=== PATIENT | female | born 1985 | race Caucasian/White ===

== ENCOUNTER 2016-05-28 12:46 | Emergency (ER) | payer BC ==
[~2016-05-28] VITALS: Ht 162.6 cm; Wt 114.3 kg
[~2016-05-28 12:46] MED LIST: ACHYD1T PO; HYDR-757 PO; IBP800T PO; MTF500T PO; PREN1TAB39 PO; TRM50T PO
[2016-05-28] MEDS ORDERED: ONDANSETRON 4 MG/2 ML (SDV) Z0FRAN ONE (13:14)
[2016-05-28 13:30] LABS: BASOPHILS % (AUTO) 0 % (0-10); EOSINOPHILS # (AUTO) 0.6 10^3/uL (0.0-0.3); EOSINOPHILS % (AUTO) 7 % (0-10); LYMPHOCYTES # (AUTO) 2.9 X 10^3 (1.0-4.0); LYMPHOCYTES % (AUTO) 36 % (12-44); MEAN CORPUSCULAR HEMOGLOBIN 28 PG (25-34); MEAN CORPUSCULAR HGB CONC 33 G/DL (32-36); MEAN CORPUSCULAR VOLUME 85 FL (80-99); MEAN PLATELET VOLUME 9.1 FL (7.4-10.4); MONOCYTES # (AUTO) 0.5 X 10^3 (0.0-1.0); MONOCYTES % (AUTO) 6 % (0-12); NEUTROPHILS # (AUTO) 4.1 X 10^3 (1.8-7.8); NEUTROPHILS % (AUTO) 51 % (42-75); PLATELET COUNT 338 10^3/uL (130-400); RED BLOOD COUNT 4.41 10^6/uL (4.35-5.85); RED CELL DISTRIBUTION WIDTH 13.9 % (10.0-14.5)
[2016-05-28] MEDS ORDERED: ONDANSETRON 4 MG/2 ML (SDV) Z0FRAN IVP ONE (13:30)
[2016-05-28 13:47] LABS: BILIRUBIN,URINE NEGATIVE (NEGATIVE); KETONES,URINE NEGATIVE (NEGATIVE); LEUKOCYTE ESTERASE ,URINE NEGATIVE (NEGATIVE); NITRITE,URINE NEGATIVE (NEGATIVE); PH,URINE 7 (5-9); PROTEIN,URINE NEGATIVE (NEGATIVE); UROBILINOGEN,URINE NORMAL (NORMAL)
[2016-05-28 13:59] LABS: ALANINE AMINOTRANSFERASE 17 U/L (0-55); ALBUMIN 4.1 G/DL (3.2-4.5); ANION GAP 6 MMOL/L (5-14); ASPARTATE AMINO TRANSFERASE 15 U/L (5-34); BILIRUBIN,TOTAL 0.3 MG/DL (0.1-1.0); BLOOD UREA NITROGEN 8 MG/DL (7-18); BUN/CREATININE RATIO 10; CALCIUM 9.2 MG/DL (8.5-10.1); CARBON DIOXIDE 23 MMOL/L (21-32); CHLORIDE 109 MMOL/L (98-107); CREATININE SERUM 0.79 MG/DL (0.60-1.30); GFR ESTIMATED > 60; GLUCOSE 87 MG/DL (70-105); POTASSIUM 4.3 MMOL/L (3.6-5.0); SODIUM 138 MMOL/L (135-145); TOTAL PROTEIN 6.9 G/DL (6.4-8.2)
[2016-05-28] MEDS ORDERED: ONDA4TAB8 SL (14:42)
--- NOTE | 2016-05-28 14:42 | ED Abdominal Pain ---
General Chief Complaint: Abdominal/GI Problems Stated Complaint: RIGHT SIDE ABD PAIN Nursing Triage Note: PT CO OF ABD PAIN [place]INCE LA[place] [facility] [place] PAIN CONT TODAY Sepsis Screen: No Definite Risk Source of Information: Patient, Old Records (from [facility]) Exam Limitations: No Limitations History of Present Illness Time Seen By Provider: 13:05 Initial Comments This 31-year-old young lady presents to the emergency room with complaints of right lower quadrant pain and flank pain since about 19:00 last night. She denies any dysuria, hematuria, vomiting, or diarrhea. She is afebrile. She has had nausea without vomiting. She was seen at [place] emergency room last night. CT with contrast was performed. Appendix was not clearly visible but there were no secondary signs of appendicitis in the right lower quadrant. Labs were also relatively unremarkable. Records were obtained and reviewed. Patient denies as she has a Mirena IUD. Last bowel movement was yesterday and was normal. Allergies and Home Medications Allergies Coded Allergies: Codeine (Verified Allergy, Unknown, 05/29/10) Home Medications Ondansetron 4 Mg Tab.rapdis, 4 MG SL Q4H PRN for NAUSEA/VOMITING-1ST LINE, #10 Prescribed by: NAS MODI on 05/28/16 1442 Review of Systems Constitutional: no symptoms reported EENTM: No Symptoms Reported Respiratory: No Symptoms Reported Cardiovascular: No Symptoms Reported Gastrointestinal: See HPI Genitourinary: No Symptoms Reported Musculoskeletal: no symptoms reported Skin: no symptoms reported Psychiatric/Neurological: No Symptoms Reported Endocrine: No Symptoms Reported Past Ninxmho-Bsmirm-Reangm Hx Patient Social History Alcohol Use: Occasionally Uses Recreational Drug Use: No Smoking Status: Current Everyday Smoker Type Used: Cigarettes Recent Foreign Travel: No Contact w/Someone Who Travel: No Recent Infectious Disease Expo: No Recent Hopitalizations: No Surgeries HX Surgeries: Yes Surgeries: Breast (cyst removed from right breast), Section, Gallbladder, Orthopedic (toe pinning) Respiratory Hx Respiratory Disorders: No Cardiovascular Hx Cardiac Disorders: No Neurological Hx Neurological Disorders: No Reproductive System : No Hx Reproductive Disorders: No Female Reproductive Disorders: Endometriosis Genitourinary Hx Genitourinary Disorders: No Gastrointestinal Hx Gastrointestinal Disorders: No Musculoskeletal Hx Musculoskeletal Disorders: No Endocrine Hx Endocrine Disorders: No Endocrine Disorders: Diabetes, Non-Insulin dep HEENT HX ENT Disorders: No Cancer Hx Cancer: No Psychosocial Hx Psychiatric Problems: No Blood Transfusions Hx Blood Disorders: No Physical Exam Vital Signs VS - Last 72 Hours, by Label 05/28/16 05/28/16 13:40 14:56 Temp 97.1 97.1 Pulse 88 88 Resp 18 18 B/P (MAP) 122/85 Pulse Ox 97 97 Capillary Refill : Less Than 3 Seconds General Appearance: WD/WN, no apparent distress HEENT: PERRL/EOMI, normal ENT inspection Neck: normal inspection Respiratory: lungs clear, normal breath sounds, no respiratory distress, no accessory muscle use Cardiovascular: regular rate, rhythm, no edema, no murmur Gastrointestinal: normal bowel sounds, soft, tenderness (mild in the right lower quadrant and right flank) Extremities: normal inspection, no pedal edema Back: normal inspection, no CVA tenderness Neurologic/Psychiatric: wood borer II-XII nml as tested, no motor/sensory deficits, alert, normal mood/affect, oriented x 3 Skin: normal color, warm/dry Progress/Results/Core Measures Results/Orders Lab Results Laboratory Tests Test 05/28/16 13:20 05/28/16 13:30 Range/Units White Blood Count 8.0 4.3-11.0 10^3/uL Red Blood Count 4.41 4.35-5.85 10^6/uL Hemoglobin 12.2 11.5-16.0 G/DL Hematocrit 37 35-52 % Mean Corpuscular Volume 85 80-99 FL Mean Corpuscular Hemoglobin 28 25-34 PG Mean Corpuscular Hemoglobin Concent 33 32-36 G/DL Red Cell Distribution Width 13.9 10.0-14.5 % Platelet Count 338 130-400 10^3/uL Mean Platelet Volume 9.1 7.4-10.4 FL Neutrophils (%) (Auto) 51 42-75 % Lymphocytes (%) (Auto) 36 12-44 % Monocytes (%) (Auto) 6 0-12 % Eosinophils (%) (Auto) 7 0-10 % Basophils (%) (Auto) 0 0-10 % Neutrophils # (Auto) 4.1 1.8-7.8 X 10^3 Lymphocytes # (Auto) 2.9 1.0-4.0 X 10^3 Monocytes # (Auto) 0.5 0.0-1.0 X 10^3 Eosinophils # (Auto) 0.6 H 0.0-0.3 10^3/uL Basophils # (Auto) 0.0 0.0-0.1 10^3/uL Sodium Level 138 135-145 MMOL/L Potassium Level 4.3 3.6-5.0 MMOL/L Chloride Level 109 H 98-107 MMOL/L Carbon Dioxide Level 23 21-32 MMOL/L Anion Gap 6 5-14 MMOL/L Blood Urea Nitrogen 8 7-18 MG/DL Creatinine 0.79 0.60-1.30 MG/DL Estimat Glomerular Filtration Rate > 60 BUN/Creatinine Ratio 10 Glucose Level 87 70-105 MG/DL Calcium Level 9.2 8.5-10.1 MG/DL Total Bilirubin 0.3 0.1-1.0 MG/DL Aspartate Amino Transf (AST/SGOT) 15 5-34 U/L Alanine Aminotransferase (ALT/SGPT) 17 0-55 U/L Alkaline Phosphatase 72 40-136 U/L C-Reactive Protein High Sensitivity 0.40 0.00-0.50 MG/DL Total Protein 6.9 6.4-8.2 G/DL Albumin 4.1 3.2-4.5 G/DL Human Chorionic Gonadotropin, Quant < 5 <5 MIU/ML Urine Color YELLOW Urine Clarity CLEAR Urine pH 7 5-9 Urine Specific [place] 1.010 L 1.016-1.022 Urine Protein NEGATIVE NEGATIVE Urine Glucose (UA) NEGATIVE NEGATIVE Urine Ketones NEGATIVE NEGATIVE Urine Nitrite NEGATIVE NEGATIVE Urine Bilirubin NEGATIVE NEGATIVE Urine Urobilinogen NORMAL NORMAL MG/DL Urine Leukocyte Esterase NEGATIVE NEGATIVE Urine RBC (Auto) NEGATIVE NEGATIVE Urine RBC NONE /HPF Urine WBC NONE /HPF Urine Squamous Epithelial Cells 5-10 /HPF Urine Crystals NONE /LPF Urine Bacteria NEGATIVE /HPF Urine Casts NONE /LPF Urine Mucus NEGATIVE /LPF Urine Culture Indicated NO My Orders Orders - NAS STEWART MD Ua Culture If Indicated (05/28/16 13:09) Ondansetron Injection (Zofran Injectio (05/28/16 13:30) Cbc With Automated Diff (05/28/16 13:17) Comprehensive Metabolic Panel (05/28/16 13:17) Hs C Reactive Protein (05/28/16 13:17) Hcg,Quantitative (05/28/16 13:17) Saline Lock/Iv-Start (05/28/16 13:17) Ondansetron Injection (Zofran Injectio (05/28/16 13:14) Ketorolac Injection (Toradol Injection) (05/28/16 14:45) Medications Given in ED Vital Signs/I&O Vital Sign - Last 12Hours 05/28/16 05/28/16 13:40 14:56 Temp 97.1 97.1 Pulse 88 88 Resp 18 18 B/P (MAP) 122/85 Pulse Ox 97 97 Blood Pressure Mean: 97 Progress Note : Progress Note Patient's labs and vital signs did not suggest infectious problem. WBC count was decreasing from her prior. Patient was treated with Toradol and advised to have careful observation at home. Zofran was given for nausea. Return precautions discussed. At this point, risks of repeating the CT seem to outweigh the benefits. Patient commented after her workup was complete that she does have a history of endometriosis and has a follow-up appointment with Dr. Ken tomorrow. Departure Impression Impression: Primary Impression: Right lower quadrant abdominal pain Additional Impression: Nausea Disposition: 01 HOME, SELF-CARE Condition: Improved Departure-Patient Inst. Decision time for Depature: 14:30 Referrals: ALYSE BELTRE MD (PCP/Family) Primary Care Physician Patient Instructions: Acute Abdomen (Belly Pain), Adult (DC) Add. Discharge Instructions: Keep your follow-up appointment with Dr. Ken as your pain may be related to endometriosis. You may take ibuprofen up to 600 mg every 6 hours as needed for pain. Add Tylenol (acetaminophen) up to 1000 mg every 6 hours as needed for additional pain relief. Use the Zofran (ondansetron) as prescribed for nausea. Return to care if symptoms worsen. All discharge instructions reviewed with patient and/or family. Voiced understanding. Scripts Ondansetron (Zofran Odt) 4 Mg Tab.rapdis 4 MG SL Q4H Y for NAUSEA/VOMITING-1ST LINE, #10 TAB Prov: NAS STEWART MD 05/28/16 Copy Copies To 1: JHONATAN KEN MD Copies To 2: ALYSE BELTRE MD, JOSHUA T MD May 28, 2016 14:42
[2016-05-28] MEDS ORDERED: KETOROLAC 30 MG/ML VIAL IVP ONE (14:45)
[2016-05-28 14:56] VITALS: BP 122/85
== END 2016-05-28 14:55 | disposition home or self-care (01) ==
LOC: EDUNIT# 12:46 → ER 12:48
DX: R10.31 Right lower quadrant pain (principal); R11.2 Nausea with vomiting, unspecified; E11.9 Type 2 diabetes mellitus without complications; F17.210 Nicotine dependence, cigarettes, uncomplicated; Z97.5 Presence of (intrauterine) contraceptive device
CPT/HCPCS: 36415; 80053; 81000; 84702; 85025; 86141; 96374; 96375

== ENCOUNTER 2016-08-17 10:24 | Emergency (ER) | payer BC ==
[~2016-08-17] VITALS: Ht 162.6 cm; Wt 111.1 kg
[~2016-08-17 10:24] MED LIST changes: +ONDA4TAB8 SL
--- NOTE | 2016-08-17 10:43 | ED General ---
General Chief Complaint: General Problems/Pain Stated Complaint: FEVER/CHILLS/BACK PAIN/SORE THROAT Source of Information: Patient Exam Limitations: No Limitations History of Present Illness Time Seen by Provider: 10:42 Initial Comments To ER with a 3 to four-day history of chills, fever up to 100.5, sore throat, low back pain and general body aches. Timing/Duration: 2-3 Days Severity: Moderate Associated Systoms: No Cough, Fever/Chills Allergies and Home Medications Allergies Coded Allergies: Codeine (Verified Allergy, Unknown, 05/29/10) Home Medications Ondansetron 4 Mg Tab.rapdis, 4 MG SL Q4H PRN for NAUSEA/VOMITING-1ST LINE, #10 Prescribed by: NAS MODI on 05/28/16 1442 Constitutional: see HPI EENTM: see HPI Respiratory: no symptoms reported Cardiovascular: no symptoms reported Genitourinary: no symptoms reported Musculoskeletal: no symptoms reported Skin: no symptoms reported Psychiatric/Neurological: No Symptoms Reported Hematologic/Lymphatic: No Symptoms Reported Immunological/Allergic: no symptoms reported Past Nlzkzaz-Igspud-Sicfrd Hx Patient Social History Alcohol Use: Denies Use Recreational Drug Use: No Smoking Status: Current Everyday Smoker Type Used: Cigarettes 2nd Hand Smoke Exposure: Yes Recent Foreign Travel: No Contact w/Someone Who Travel: No Recent Hopitalizations: No Surgeries HX Surgeries: Yes Surgeries: Breast, Section, Gallbladder, Orthopedic Respiratory Hx Respiratory Disorders: No Cardiovascular Hx Cardiac Disorders: No Neurological Hx Neurological Disorders: No Reproductive System Hx Reproductive Disorders: No Female Reproductive Disorders: Endometriosis Genitourinary Hx Genitourinary Disorders: No Gastrointestinal Hx Gastrointestinal Disorders: No Musculoskeletal Hx Musculoskeletal Disorders: No Endocrine Hx Endocrine Disorders: No Endocrine Disorders: Diabetes, Non-Insulin dep HEENT HX ENT Disorders: No Cancer Hx Cancer: No Psychosocial Hx Psychiatric Problems: No Blood Transfusions Hx Blood Disorders: No Physical Exam Vital Signs Vital Sign - Last 12Hours 08/17/16 10:33 Temp 97.2 Pulse 84 Resp 16 B/P (MAP) 144/82 Pulse Ox 98 O2 Delivery Room Air Capillary Refill : Less Than 3 Seconds General Appearance: No Apparent Distress, WD/WN Eyes: Bilateral Eye EOMI, Bilateral Eye Normal Inspection, Bilateral Eye PERRL HEENT: PERRL/EOMI, TMs Normal, Tonsillar Exudate, Tonsillar Enlargement, Other (tonsillar erythema with exudate) Neck: Full Range of Motion, Normal Inspection Respiratory: Normal Breath Sounds, No Accessory Muscle Use, No Respiratory Distress Cardiovascular: Regular Rate, Rhythm, Normal Peripheral Pulses Gastrointestinal: Non Tender, Soft Extremity: Normal Capillary Refill, Normal Inspection Neurologic/Psychiatric: Alert, Oriented x3 Skin: Normal Color, Warm/Dry, No Rash Progress/Results/Core Measures Results/Orders Lab Results Laboratory Tests Test 08/17/16 10:35 Range/Units Group A Streptococcus Screen POSITIVE H NEGATIVE My Orders Orders - KELTON MERIDA APRN Rapid Strep A Screen (08/17/16 10:41) Dexamethasone Pf Injection (Decadron Pf (08/17/16 11:00) Amoxicillin Capsule (Polymox Capsule) (08/17/16 11:00) Vital Signs/I&O Vital Sign - Last 12Hours 08/17/16 10:33 Temp 97.2 Pulse 84 Resp 16 B/P (MAP) 144/82 Pulse Ox 98 O2 Delivery Room Air Departure Impression Impression: Primary Impression: Streptococcal pharyngitis Disposition: 01 HOME, SELF-CARE Condition: Stable Departure-Patient Inst. Decision time for Depature: 10:56 Referrals: ALYSE BELTRE MD (PCP/Family) Primary Care Physician Patient Instructions: Strep Throat (DC) Add. Discharge Instructions: 1. Antibiotics as directed 2. Return to ER for any concerns All discharge instructions reviewed with patient and/or family. Voiced understanding. Scripts Amoxicillin (Amoxicillin) 500 Mg Capsule 500 MG PO TID, #21 CAP Prov: KELTON MERIDA APRN 08/17/16 KELTON MERIDA APRN Aug 17, 2016 10:43
[2016-08-17] MEDS ORDERED: AMOXICILLIN 500 MG (POLYMOX) CAP PO ONE (10:57)
[2016-08-17] MEDS ORDERED: AMOX500C2 PO (10:58)
[2016-08-17] MEDS ORDERED: AMOXICILLIN 250 MG (POLYMOX) CAP PO SCH (11:00)
[2016-08-17] MEDS ORDERED: DEXAMETHASONE PF 10 MG/ML (DECADRON) VIAL IM ONE (11:00)
[2016-08-17 11:07] VITALS: BP 144/82
--- OUTSIDE RECORDS SUMMARY | 2016-08-21 06:50 | XMS REPORT | Continuity of Care Document ---
Author Author [facility] Organization [facility] Address Unknown Phone Unavailable Allergies Active Description Code Type Severity Reaction Onset Reported/Identified Relationship to Patient Clinical Status Yes codeine [id number] Drug Allergy Unknown N/A 01/25/2009 Medications Problems Date Dx Coded Attending Type Code Diagnosis Diagnosed By 12/08/2010 Ot 644.21 EARLY ONSET DELIVERY-DEL 12/08/2010 Ot 654.21 PREV DELIVRY W/ OR W/O MENT ANT 12/08/2010 Ot V27.0 DELIVER-SINGLE LIVEBORN 01/13/2013 KELTON MERIDA APRN Ot 620.2 OVARIAN CYST NEC/NOS 01/13/2013 KELTON MERIDA APRN Ot 789.03 ABDOMINAL PAIN, RIGHT LOWER QUADRANT 10/01/2013 NAS STEWART MD Ot 789.04 ABDOMINAL PAIN, LEFT LOWER QUADRANT 05/28/2016 NAS STEWART MD Ot E11.9 TYPE 2 DIABETES MELLITUS WITHOUT COMPLIC 05/28/2016 NAS STEWART MD Ot F17.210 NICOTINE DEPENDENCE, CIGARETTES, UNCOMPL 05/28/2016 NAS STEWART MD Ot R10.31 RIGHT LOWER QUADRANT PAIN 05/28/2016 NAS STEWART MD Ot R11.2 NAUSEA WITH VOMITING, UNSPECIFIED 05/28/2016 NAS STEWART MD Ot Z97.5 PRESENCE OF (INTRAUTERINE) CONTRACEPTIVE 05/30/2016 NAS STEWART MD Ot E11.9 TYPE 2 DIABETES MELLITUS WITHOUT COMPLIC 05/30/2016 NAS STEWART MD Ot F17.210 NICOTINE DEPENDENCE, CIGARETTES, UNCOMPL 05/30/2016 NAS STEWART MD Ot R10.31 RIGHT LOWER QUADRANT PAIN 05/30/2016 NAS STEWART MD Ot R11.2 NAUSEA WITH VOMITING, UNSPECIFIED 05/30/2016 NAS STEWART MD Ot Z97.5 PRESENCE OF (INTRAUTERINE) CONTRACEPTIVE Procedures Code Description Performed By Performed On 74.1 LOW CERVICAL 12/06/2010 Results Test Result Range Complete blood count (CBC) with automated white blood cell (WBC) differential - 05/28/16 13:20 Blood leukocytes automated count (number/volume) 8.0 10*3/ uL 4.3-11.0 Blood erythrocytes automated count (number/volume) 4.41 10*6 /uL 4.35-5.85 Venous blood hemoglobin measurement (mass/volume) 12.2 g/dL 11.5-16.0 Blood hematocrit (volume fraction) 37 % 35-52 Automated erythrocyte mean corpuscular volume 85 [foz_us] 80-99 Automated erythrocyte mean corpuscular hemoglobin (mass per erythrocyte) 28 pg 25-34 Automated erythrocyte mean corpuscular hemoglobin concentration measurement ( mass/volume) 33 g/dL 32-36 Automated erythrocyte distribution width ratio 13.9 % 10.0-14.5 Automated blood platelet count (count/volume) 338 10*3/uL 130-400 Automated blood platelet mean volume measurement 9.1 [foz_us ] 7.4-10.4 Automated blood neutrophils/100 leukocytes 51 % 42-75 Automated blood lymphocytes/100 leukocytes 36 % 12-44 Blood monocytes/100 leukocytes 6 % 0-12 Automated blood eosinophils/100 leukocytes 7 % 0-10 Automated blood basophils/100 leukocytes 0 % 0-10 Blood neutrophils automated count (number/volume) 4.1 10*3 1.8-7.8 Blood lymphocytes automated count (number/volume) 2.9 10*3 1.0-4.0 Blood monocytes automated count (number/volume) 0.5 10*3 0.0-1.0 Automated eosinophil count 0.6 10*3/uL 0.0-0.3 Automated blood basophil count (count/volume) 0.0 10*3/uL 0.0-0.1 Comprehensive metabolic panel - 05/28/16 13:20 Serum or plasma sodium measurement (moles/volume) 138 mmol/ L 135-145 Serum or plasma potassium measurement (moles/volume) 4.3 mmol/L 3.6-5.0 Serum or plasma chloride measurement (moles/volume) 109 mmol /L 98-107 Carbon dioxide 23 mmol/L 21-32 Serum or plasma anion gap determination (moles/volume) 6 mmol/L 5-14 Serum or plasma urea nitrogen measurement (mass/volume) 8 mg /dL 7-18 Serum or plasma creatinine measurement (mass/volume) 0.79 mg /dL 0.60-1.30 Serum or plasma urea nitrogen/creatinine mass ratio 10 NRG Serum or plasma creatinine measurement with calculation of estimated glomerular filtration rate > NRG Serum or plasma glucose measurement (mass/volume) 87 mg/dL 70-105 Serum or plasma calcium measurement (mass/volume) 9.2 mg/dL 8.5-10.1 Serum or plasma total bilirubin measurement (mass/volume) 0.3 mg/dL 0.1-1.0 Serum or plasma alkaline phosphatase measurement (enzymatic activity/volume) 72 U/L 40-136 Serum or plasma aspartate aminotransferase measurement (enzymatic activity/ volume) 15 U/L 5-34 Serum or plasma alanine aminotransferase measurement (enzymatic activity/volume ) 17 U/L 0-55 Serum or plasma protein measurement (mass/volume) 6.9 g/dL 6.4-8.2 Serum or plasma albumin measurement (mass/volume) 4.1 g/dL 3.2-4.5 Serum or plasma choriogonadotropin measurement (units/volume) - 05/28/16 13:20 Serum or plasma choriogonadotropin measurement (units/volume) < m[iU]/mL <5 Serum or plasma C reactive protein measurement (mass/volume) - 05/28/16 13:20 Serum or plasma C reactive protein measurement (mass/volume) 0.40 mg/dL 0.00-0.50 Complete urinalysis with reflex to culture - 05/28/16 13:30 Urine color determination YELLOW NRG Urine clarity determination CLEAR NRG Urine pH measurement by test strip 7 5- 9 Specific gravity of urine by test strip 1.010 1.016-1.022 Urine protein assay by test strip, semi-quantitative NEGATIVE NEGATIVE Urine glucose detection by automated test strip NEGATIVE NEGATIVE Erythrocytes detection in urine sediment by light microscopy NEGATIVE NEGATIVE Urine ketones detection by automated test strip NEGATIVE NEGATIVE Urine nitrite detection by test strip NEGATIVE NEGATIVE Urine total bilirubin detection by test strip NEGATIVE NEGATIVE Urine urobilinogen measurement by automated test strip (mass/volume) NORMAL NORMAL Urine leukocyte esterase detection by dipstick NEGATIVE NEGATIVE Automated urine sediment erythrocyte count by microscopy (number/high power field) NONE NRG Automated urine sediment leukocyte count by microscopy (number/high power field ) NONE NRG Bacteria detection in urine sediment by light microscopy NEGATIVE NRG Squamous epithelial cells detection in urine sediment by light microscopy 5-10 NRG Crystals detection in urine sediment by light microscopy NONE NRG Casts detection in urine sediment by light microscopy NONE NRG Mucus detection in urine sediment by light microscopy NEGATIVE NRG Complete urinalysis with reflex to culture NO NRG Streptococcus pyogenes antigen detection - 08/17/16 10:35 Streptococcus pyogenes antigen detection POSITIVE NEGATIVE Encounters ACCT No. Visit Date/Time Discharge Status Pt. Type Provider Facility Loc./Unit Complaint [id number] 08/17/2016 10:26:00 2016 11:07:00 DIS Emergency KELTON MERIDA APRN [facility] ER FEVER/CHILLS/BACK PAIN/SORE THROAT [id number] 05/28/2016 12:48:00 2016 14:55:00 DIS Emergency NAS STEWART MD [facility] ER RIGHT SIDE ABD PAIN [id number] 10/01/2013 20:01:00 2013 23:55:00 DIS Emergency NAS STEWART MD [facility] ER L SIDE PAIN [id number] 01/13/2013 19:36:00 2012 21:57:00 DIS Emergency KELTON MERIDA APRN [facility] ER R SIDE PAIN [id number] 05/28/2016 12:49:00 Document Registration [id number] 12/06/2010 11:45:00 Document Registration
== END 2016-08-17 11:07 | disposition home or self-care (01) ==
LOC: EDUNIT# 10:24 → ER 10:26
DX: J02.0 Streptococcal pharyngitis (principal); E11.9 Type 2 diabetes mellitus without complications; F17.210 Nicotine dependence, cigarettes, uncomplicated
CPT/HCPCS: 87430; 96372; 99283

== ENCOUNTER 2017-03-03 20:42 | Emergency (ER) | payer BC ==
[~2017-03-03] VITALS: Ht 162.6 cm; Wt 117.9 kg
[~2017-03-03 20:42] MED LIST changes: +AMOX500C2 PO
--- OUTSIDE RECORDS SUMMARY | 2017-03-03 20:49 | XMS REPORT | Continuity of Care Document ---
Author Author [facility] Organization [facility] Address Unknown Phone Unavailable Allergies Active Description Code Type Severity Reaction Onset Reported/Identified Relationship to Patient Clinical Status Yes codeine [id number] Drug Allergy Unknown N/A 01/25/2009 Medications There is no data. Problems Date Dx Coded Attending Type Code Diagnosis Diagnosed By 12/08/2010 Ot 644.21 EARLY ONSET DELIVERY-DEL 12/08/2010 Ot 654.21 PREV DELIVRY W/ OR W/O MENT ANT 12/08/2010 Ot V27.0 DELIVER- SINGLE LIVEBORN 01/13/2013 KELTON MERIDA APRN Ot 620.2 OVARIAN CYST NEC/NOS 01/13/2013 KELTON MERIDA BLOCK GREASER Ot 789.03 ABDOMINAL PAIN, RIGHT LOWER QUADRANT [...] Ot R11.2 NAUSEA WITH VOMITING, UNSPECIFIED 05/30/2016 TERRY GUZMAN, NAS [place] Ot Z97.5 PRESENCE OF (INTRAUTERINE) CONTRACEPTIVE 08/17/2016 KELTON MERIDA APRN Ot E11.9 TYPE 2 DIABETES MELLITUS WITHOUT COMPLIC 08/17/2016 KELTON MERIDA APRN Ot F17.210 NICOTINE DEPENDENCE, CIGARETTES, UNCOMPL 08/17/2016 KELTON MERIDA APRN Ot J02.0 STREPTOCOCCAL PHARYNGITIS 08/17/2016 KELTON MERIDA APRN Ot R50.9 FEVER, UNSPECIFIED 08/23/2016 KELTON MERIDA BLOCK GREASER Ot E11.9 TYPE 2 DIABETES MELLITUS WITHOUT COMPLIC 08/23/2016 KELTON MERIDA APRN Ot F17.210 NICOTINE DEPENDENCE, CIGARETTES, UNCOMPL 08/23/2016 KELTON MERIDA APRN Ot J02.0 STREPTOCOCCAL PHARYNGITIS 08/23/2016 KELTON MERIDA APRN Ot R50.9 FEVER, UNSPECIFIED Procedures Code Description Performed By Performed On 74.1 LOW CERVICAL 12/06/2010 Results Test Result Range Complete blood count (CBC) with automated white blood cell (WBC) differential - 05/28/16 13:20 Blood leukocytes automated count (number/volume) 8.0 10*3/uL 4.3-11.0 Blood erythrocytes automated count (number/volume) 4.41 10*6/uL 4.35-5.85 Venous blood hemoglobin measurement (mass/volume) 12.2 [...] Automated blood platelet mean volume measurement 9.1 [foz_us] 7.4-10.4 Automated blood neutrophils/100 leukocytes 51 % [...] Serum or plasma sodium measurement (moles/volume) 138 mmol/L 135-145 Serum or plasma potassium measurement (moles/volume) 4.3 mmol/L 3.6-5.0 Serum or plasma chloride measurement (moles/volume) 109 mmol/L 98-107 Carbon dioxide 23 mmol/L 21-32 Serum or plasma anion gap determination (moles/volume) 6 mmol/L 5-14 Serum or plasma urea nitrogen measurement (mass/volume) 8 mg/dL 7-18 Serum or plasma creatinine measurement (mass/volume) 0.79 mg/dL 0.60-1.30 Serum or plasma urea nitrogen/creatinine mass [...] Serum or plasma choriogonadotropin measurement (units/volume) < m[iU ]/mL <5 Serum or plasma C reactive protein measurement (mass/volume) - 05/28/16 13:20 Serum or plasma C reactive protein measurement (mass/volume) 0.40 mg /dL 0.00-0.50 Complete urinalysis with reflex to culture - 05/28/16 13:30 Urine color determination YELLOW NRG Urine clarity determination CLEAR NRG Urine pH measurement by test strip 7 5-9 Specific gravity of urine by test strip 1.010 1.016- 1.022 Urine protein assay by test strip, semi-quantitative [...] Status Pt. Type Provider Facility Loc./Unit Complaint [id number] 08/17/2016 10:26:00 08/17/2016 11:07:00 DIS Emergency KELTON MERIDA APRN [facility] ER FEVER/CHILLS/BACK PAIN/ SORE THROAT [id number] 05/28/2016 12:48:00 05/28/2016 14:55:00 DIS Emergency NAS STEWART MD [facility] ER RIGHT SIDE ABD PAIN [id number] 10/01/2013 20:01:00 10/01/2013 23:55:00 DIS Emergency NAS STEWART MD [facility] ER L SIDE PAIN [id number] 01/13/2013 19:36:00 01/13/2013 21:57:00 DIS Emergency KELTON MERIDA APRN [facility] ER R SIDE PAIN [id number] 05/28/2016 12:49:00 Document Registration [id number] 12/06/2010 11:45:00 Document Registration
[2017-03-03 21:03] LABS: BILIRUBIN,URINE NEGATIVE (NEGATIVE); CLARITY,URINE CLEAR; COLOR,URINE YELLOW; GLUCOSE, URINE (UA) NEGATIVE (NEGATIVE); KETONES,URINE NEGATIVE (NEGATIVE); LEUKOCYTE ESTERASE ,URINE NEGATIVE (NEGATIVE); NITRITE,URINE NEGATIVE (NEGATIVE); PH,URINE 6 (5-9); PROTEIN,URINE NEGATIVE (NEGATIVE); UROBILINOGEN,URINE NORMAL (NORMAL)
[2017-03-03 21:13] LABS: BACTERIA,URINE TRACE /HPF; RBC,URINE 0-2 /HPF; WBC,URINE RARE /HPF
[2017-03-03 21:51] LABS: BASOPHILS % (AUTO) 0 % (0-10); EOSINOPHILS # (AUTO) 0.6 10^3/uL (0.0-0.3); EOSINOPHILS % (AUTO) 6 % (0-10); HEMATOCRIT 35 % (35-52); LYMPHOCYTES # (AUTO) 4.3 X 10^3 (1.0-4.0); LYMPHOCYTES % (AUTO) 48 % (12-44); MEAN CORPUSCULAR HEMOGLOBIN 29 PG (25-34); MEAN CORPUSCULAR HGB CONC 34 G/DL (32-36); MEAN CORPUSCULAR VOLUME 84 FL (80-99); MEAN PLATELET VOLUME 8.4 FL (7.4-10.4); MONOCYTES # (AUTO) 0.4 X 10^3 (0.0-1.0); MONOCYTES % (AUTO) 5 % (0-12); NEUTROPHILS # (AUTO) 3.8 X 10^3 (1.8-7.8); NEUTROPHILS % (AUTO) 41 % (42-75); PLATELET COUNT 346 10^3/uL (130-400); RED BLOOD COUNT 4.14 10^6/uL (4.35-5.85); RED CELL DISTRIBUTION WIDTH 13.3 % (10.0-14.5); WHITE BLOOD COUNT 9.1 10^3/uL (4.3-11.0)
[2017-03-03 22:16] LABS: ALANINE AMINOTRANSFERASE 20 U/L (0-55); ALKALINE PHOSPHATASE 81 U/L (40-136); BILIRUBIN,TOTAL 0.2 MG/DL (0.1-1.0); BUN/CREATININE RATIO 14; CALCIUM 9.4 MG/DL (8.5-10.1); CARBON DIOXIDE 23 MMOL/L (21-32); CHLORIDE 104 MMOL/L (98-107); CREATININE SERUM 0.81 MG/DL (0.60-1.30); GFR ESTIMATED > 60; GLUCOSE 125 MG/DL (70-105); POTASSIUM 3.7 MMOL/L (3.6-5.0); SODIUM 139 MMOL/L (135-145); TOTAL PROTEIN 7.2 GM/DL (6.4-8.2)
--- NOTE | 2017-03-03 22:58 | ED Abdominal Pain ---
General Chief Complaint: Abdominal/GI Problems Stated Complaint: ABD PAIN Nursing Triage Note: left lower abdominal pain since 0800 Sepsis Screen: No Definite Risk Source of Information: Patient Exam Limitations: No Limitations History of Present Illness Initial Comments No vaginal symptoms Allergies and Home Medications Allergies Coded Allergies: Codeine (Verified Allergy, Unknown, 05/29/10) Home Medications No Active Prescriptions or Reported Meds Past Crcgidc-Irnvbm-Babycn Hx Patient Social History Alcohol Use: Denies Use Recreational Drug Use: No Smoking Status: Current Everyday Smoker Type Used: Cigarettes 2nd Hand Smoke Exposure: Yes Recent Foreign Travel: No Contact w/Someone Who Travel: No Recent Infectious Disease Expo: No Recent Hopitalizations: No Immunizations Up To Date Tetanus Booster (TDap): Unknown PED Vaccines UTD: Yes Seasonal Allergies Seasonal Allergies: No Surgeries History of Surgeries: Yes (2002 FX LT FOOT, CYST REMOVED FROM RT BREAST, C/S 2008) Surgeries: Breast, Section, Gallbladder, Orthopedic Respiratory History of Respiratory Disorde: No Cardiovascular History of Cardiac Disorders: No Neurological History of Neurological Disord: No Reproductive System : No Hx Reproductive Disorders: No Female Reproductive Disorders: Endometriosis 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 Genitourinary History of Genitourinary Disor: No Gastrointestinal History of Gastrointestinal Di: No Musculoskeletal History of Musculoskeletal Dis: No Endocrine History of Endocrine Disorders: No Endocrine Disorders: Diabetes, Non-Insulin dep HEENT History of HEENT Disorders: No Cancer History of Cancer: No Psychosocial History of Psychiatric Problem: No Integumentary History of Skin or Integumenta: No Blood Transfusions History of Blood Disorders: No Physical Exam Vital Signs VS - Last 72 Hours, by Label 03/03/17 20:45 Temp 97.1 Pulse 79 Resp 18 B/P (MAP) 170/94 (119) Pulse Ox 100 O2 Delivery Room Air Capillary Refill : Less Than 3 Seconds Progress/Results/Core Measures Results/Orders Lab Results Laboratory Tests Test 03/03/17 20:55 03/03/17 21:40 Range/Units Urine Color YELLOW Urine Clarity CLEAR Urine pH 6 5-9 Urine Specific [place] 1.020 1.016-1.022 Urine Protein NEGATIVE NEGATIVE Urine Glucose (UA) NEGATIVE NEGATIVE Urine Ketones NEGATIVE NEGATIVE Urine Nitrite NEGATIVE NEGATIVE Urine Bilirubin NEGATIVE NEGATIVE Urine Urobilinogen NORMAL NORMAL MG/DL Urine Leukocyte Esterase NEGATIVE NEGATIVE Urine RBC (Auto) 1+ H NEGATIVE Urine RBC 0-2 /HPF Urine WBC RARE /HPF Urine Squamous Epithelial Cells 2-5 /HPF Urine Crystals NONE /LPF Urine Bacteria TRACE /HPF Urine Casts NONE /LPF Urine Mucus SMALL H /LPF Urine Culture Indicated NO White Blood Count 9.1 4.3-11.0 10^3/uL Red Blood Count 4.14 L 4.35-5.85 10^6/uL Hemoglobin 12.0 11.5-16.0 G/DL Hematocrit 35 35-52 % Mean Corpuscular Volume 84 80-99 FL Mean Corpuscular Hemoglobin 29 25-34 PG Mean Corpuscular Hemoglobin Concent 34 32-36 G/DL Red Cell Distribution Width 13.3 10.0-14.5 % Platelet Count 346 130-400 10^3/uL Mean Platelet Volume 8.4 7.4-10.4 FL Neutrophils (%) (Auto) 41 L 42-75 % Lymphocytes (%) (Auto) 48 H 12-44 % Monocytes (%) (Auto) 5 0-12 % Eosinophils (%) (Auto) 6 0-10 % Basophils (%) (Auto) 0 0-10 % Neutrophils # (Auto) 3.8 1.8-7.8 X 10^3 Lymphocytes # (Auto) 4.3 H 1.0-4.0 X 10^3 Monocytes # (Auto) 0.4 0.0-1.0 X 10^3 Eosinophils # (Auto) 0.6 H 0.0-0.3 10^3/uL Basophils # (Auto) 0.0 0.0-0.1 10^3/uL Sodium Level 139 135-145 MMOL/L Potassium Level 3.7 3.6-5.0 MMOL/L Chloride Level 104 98-107 MMOL/L Carbon Dioxide Level 23 21-32 MMOL/L Anion Gap 12 5-14 MMOL/L Blood Urea Nitrogen 11 7-18 MG/DL Creatinine 0.81 0.60-1.30 MG/DL Estimat Glomerular Filtration Rate > 60 BUN/Creatinine Ratio 14 Glucose Level 125 H 70-105 MG/DL Calcium Level 9.4 8.5-10.1 MG/DL Total Bilirubin 0.2 0.1-1.0 MG/DL Aspartate Amino Transf (AST/SGOT) 12 5-34 U/L Alanine Aminotransferase (ALT/SGPT) 20 0-55 U/L Alkaline Phosphatase 81 40-136 U/L Total Protein 7.2 6.4-8.2 GM/DL Albumin 4.0 3.2-4.5 GM/DL Serum Test, Qualitative NEGATIVE NEGATIVE My Orders Orders - NAS STEWART MD Ua Culture If Indicated (03/03/17 20:58) Cbc With Automated Diff (03/03/17 21:20) Comprehensive Metabolic Panel (03/03/17 21:20) Hcg,Qualitative Serum (03/03/17 21:20) Saline Lock/Iv-Start (03/03/17 21:20) Abdomen/Kub 1view (03/03/17 22:34) Vital Signs/I&O Vital Sign - Last 12Hours 03/03/17 20:45 Temp 97.1 Pulse 79 Resp 18 B/P (MAP) 170/94 (119) Pulse Ox 100 O2 Delivery Room Air Blood Pressure Mean: 119 Progress Note : Progress Note Workup was unremarkable. Patient was offered to wait for ultrasound or to follow-up with Dr. Ken in the morning. She elects to follow-up with Dr. Ken. She was given Toradol prior to dismissal. Diagnostic Imaging Diagonstic Imaging: Xray Plain Films/CT/US/NM/MRI: abdomen Comments Abdominal x-ray viewed by me. Report not yet available. Moderate amount proximal colonic stool. Otherwise unremarkable bowel gas pattern. IUD in place. No acute abnormalities appreciated by the ER physician. Departure Impression Impression: Primary Impression: Abdominal pain, left lower quadrant Departure-Patient Inst. Decision time for Depature: 23:15 Referrals: ALYSE BELTRE MD (PCP/Family) Primary Care Physician Patient Instructions: Acute Abdomen (Belly Pain), Adult (DC) Add. Discharge Instructions: You may continue taking Aleve (naproxen) up to 500 mg twice daily. Add Tylenol (acetaminophen) up to 1000 mg every 6 hours as needed for additional relief. Follow-up with Dr. Ken in the morning if symptoms persist. Return to the ER symptoms worsen. All discharge instructions reviewed with patient and/or family. Voiced understanding. Scripts No Active Prescriptions or Reported Meds Copy Copies To 1: JHONATAN KEN MD, JOSHUA T MD Mar 03, 2017 22:58
[2017-03-03 23:30] VITALS: BP 127/78
[2017-03-03] MEDS ORDERED: KETOROLAC 30 MG/ML VIAL IVP ONE (23:30)
--- NOTE | 2017-03-04 07:58 | Diagnostic Imaging Report ---
INDICATION: Abdominal pain and nausea. KUB obtained at 11:00 p.m. FINDINGS: Abdominal bowel gas pattern is unremarkable. There is no sign of obstruction or ileus. There are surgical clips in the right upper quadrant. There is an IUD in place overlying the pelvis. There are no suspicious calcifications. IMPRESSION: Unremarkable bowel gas pattern with postoperative findings as above. There is moderate stool throughout the colon. Dictated by: Dictated on workstation # [id number]
== END 2017-03-03 23:30 | disposition home or self-care (01) ==
LOC: EDUNIT# 20:42 → ER 20:45
DX: R10.32 Left lower quadrant pain (principal); E11.9 Type 2 diabetes mellitus without complications; F17.210 Nicotine dependence, cigarettes, uncomplicated; Z97.5 Presence of (intrauterine) contraceptive device; Z87.59 Personal history of other complications of pregnancy, childbirth and the puerperium; Z87.81 Personal history of (healed) traumatic fracture
CPT/HCPCS: 36415; 74018; 80053; 81000; 84703; 85025; 96374

== ENCOUNTER 2017-11-04 10:16 | Emergency (ER) | payer BC ==
[~2017-11-04] VITALS: Ht 162.6 cm; Wt 117.9 kg
--- OUTSIDE RECORDS SUMMARY | 2017-11-04 11:03 | XMS REPORT | Continuity of Care Document ---
Author Author [facility] Organization [facility] Address Unknown Phone Unavailable Allergies Active Description Code Type Severity Reaction Onset Reported/Identified Relationship to Patient Clinical Status Yes CODEINE SULFATE CODEINE SULFATE MODERATE Yes CODEINE SULFATE MODERATE GI PROBLEMS - VOMITI Yes codeine [id number] Drug Allergy Unknown N/A 01/25/2009 Medications Medication Packaging Start Date Stop Date Route Dosage Sig NORMAL SALINE 1000CC IV BAG INJ 0.9 % (NS 1000CC IV BAG) ml 05/27/2016 05/27/2016 ONCE&1958 KETOROLAC VIAL INJ 30 MG/CC (TORADOL VIAL) MG 05/27/2016 05/27/2016 ONCE&1959 ONDANSETRON VIAL INJ 4 MG/2CC (ZOFRAN 2CC VIAL) MG 05/27/2016 05/27/2016 ONCE&1959 Problems Date Dx Coded Attending Type Code Diagnosis Diagnosed By 12/08/2010 Ot 644.21 EARLY ONSET DELIVERY-DEL 12/08/2010 Ot 654.21 PREV DELIVRY W/ OR W/O MENT ANT 12/08/2010 Ot V27.0 DELIVER- SINGLE LIVEBORN 01/13/2013 KELTON MERIDA TRANSITION NURSE Ot 620.2 OVARIAN CYST NEC/NOS 01/13/2013 KELTON MERIDA TRANSITION NURSE Ot 789.03 ABDOMINAL PAIN, RIGHT LOWER QUADRANT 10/01/2013 TERRY GUZMAN, NAS [place] Ot 789.04 ABDOMINAL PAIN, LEFT LOWER QUADRANT 05/27/2016 CLARENCE ABDI 789.07 ABDOMINAL PAIN, GENERALIZED 05/27/2016 CLARENCE ABDI R10.84 GENERALIZED ABDOMINAL PAIN 05/28/2016 TERRY GUZMAN, NAS [place] Ot E11.9 TYPE 2 DIABETES MELLITUS WITHOUT COMPLIC 05/28/2016 TERRY GUZMAN, NAS [place] Ot F17.210 NICOTINE DEPENDENCE, CIGARETTES, UNCOMPL 05/28/2016 TERRY GUZMAN, NAS T Ot R10.31 RIGHT LOWER QUADRANT PAIN 05/28/2016 [...] MD Ot Z97.5 PRESENCE OF (INTRAUTERINE) CONTRACEPTIVE 08/17/2016 KELTON MERIDA TRANSITION NURSE Ot E11.9 TYPE 2 DIABETES MELLITUS WITHOUT COMPLIC 08/17/2016 KELTON MERIDA TRANSITION NURSE Ot F17.210 NICOTINE DEPENDENCE, CIGARETTES, UNCOMPL 08/17/2016 KELTON MERIDA TRANSITION NURSE Ot J02.0 STREPTOCOCCAL PHARYNGITIS 08/17/2016 KELTON MERIDA TRANSITION NURSE Ot R50.9 FEVER, UNSPECIFIED 08/23/2016 KELTON MERIDA TRANSITION NURSE Ot E11.9 TYPE 2 DIABETES MELLITUS WITHOUT COMPLIC 08/23/2016 KELTON MERIDA TRANSITION NURSE Ot F17.210 NICOTINE DEPENDENCE, CIGARETTES, UNCOMPL 08/23/2016 KELTON MERIDA TRANSITION NURSE Ot J02.0 STREPTOCOCCAL PHARYNGITIS 08/23/2016 KELTON MERIDA TRANSITION NURSE Ot R50.9 FEVER, UNSPECIFIED 03/03/2017 NAS STEWART MD Ot E11.9 TYPE 2 DIABETES MELLITUS WITHOUT COMPLIC 03/03/2017 NAS STEWART MD Ot F17.210 NICOTINE DEPENDENCE, CIGARETTES, UNCOMPL 03/03/2017 NAS STEWART MD Ot R10.32 LEFT LOWER QUADRANT PAIN 03/03/2017 NAS STEWART MD Ot Z87.59 PERSONAL HISTORY OF COMP OF PREG, CHLDBR 03/03/2017 NAS STEWART MD Ot Z87.81 PERSONAL HISTORY OF (HEALED) TRAUMATIC F 03/03/2017 NAS STEWART MD, Ot Z97.5 PRESENCE OF (INTRAUTERINE) CONTRACEPTIVE 03/05/2017 NAS STEWART MD, Ot E11.9 TYPE 2 DIABETES MELLITUS WITHOUT COMPLIC 03/05/2017 NAS STEWART MD, Ot F17.210 NICOTINE DEPENDENCE, CIGARETTES, UNCOMPL 03/05/2017 NAS STEWART MD, Ot R10.32 LEFT LOWER QUADRANT PAIN 03/05/2017 NAS STEWART MD, Ot Z87.59 PERSONAL HISTORY OF COMP OF PREG, CHLDBR 03/05/2017 NAS STEWART MD, Ot Z87.81 PERSONAL HISTORY OF (HEALED) TRAUMATIC F 03/05/2017 NAS STEWART MD, Ot Z97.5 PRESENCE OF (INTRAUTERINE) CONTRACEPTIVE Procedures Code Description Performed By Performed On 74.1 LOW CERVICAL 12/06/2010 Results Test Result Range Urinalysis - 05/27/16 20:05 Icotest N/A Negative Urine Volume Urine Volume Sufficient (10mL) Urine-Appearance Slightly Cloudy Clear Urine-Bacteria Trace Urine-Bilirubin Negative Negative Urine-Blood 1+ Negative Urine-Color Yellow Colorless-Lt. Yellow Urine-Epithelial Cells 10-20/HPF Urine-Glucose Negative Negative Urine-Ketones Negative Negative Urine-Leukocytes Negative Negative Urine-Nitrite Negative Negative Urine-Other Urine Saved if Culture Needed (48hrs from time of collection) Urine-pH 6.0 5-8.5 Urine-Protein Negative Negative Urine-RBC 0-3/HPF Urine-Specific [place] 1.015 1.000-1.030 Urine-WBC 1-3/HPF Urobilinogen 0.2 0.2-1.0 Complete blood count (CBC) with automated white [...] 10:35 Streptococcus pyogenes antigen detection POSITIVE NEGATIVE Complete urinalysis with reflex to culture - 03/03/17 20:55 Urine color determination YELLOW NRG Urine clarity determination CLEAR NRG Urine pH measurement by test strip 6 5-9 Specific gravity of urine by test strip 1.020 1.016- 1.022 Urine protein assay by test strip, semi-quantitative NEGATIVE NEGATIVE Urine glucose detection by automated test strip NEGATIVE NEGATIVE Erythrocytes detection in urine sediment by light microscopy 1+ NEGATIVE Urine ketones detection by automated test strip NEGATIVE NEGATIVE Urine nitrite detection by test strip NEGATIVE NEGATIVE Urine total bilirubin detection by test strip NEGATIVE NEGATIVE Urine urobilinogen measurement by automated test strip (mass/volume) NORMAL NORMAL Urine leukocyte esterase detection by dipstick NEGATIVE NEGATIVE Automated urine sediment erythrocyte count by microscopy (number/high power field) [HPF] NRG Automated urine sediment leukocyte count by microscopy (number/high power field ) RARE NRG Bacteria detection in urine sediment by light microscopy TRACE NRG Squamous epithelial cells detection in urine sediment by light microscopy 2-5 NRG Crystals detection in urine sediment by light microscopy NONE NRG Casts detection in urine sediment by light microscopy NONE NRG Mucus detection in urine sediment by light microscopy SMALL NRG Complete urinalysis with reflex to culture NO NRG Complete blood count (CBC) with automated white blood cell (WBC) differential - 03/03/17 21:40 Blood leukocytes automated count (number/volume) 9.1 10*3/uL 4.3-11.0 Blood erythrocytes automated count (number/volume) 4.14 10*6/uL 4.35-5.85 Venous blood hemoglobin measurement (mass/volume) 12.0 g/dL 11.5-16.0 Blood hematocrit (volume fraction) 35 % 35-52 Automated erythrocyte mean corpuscular volume 84 [foz_us] 80-99 Automated erythrocyte mean corpuscular hemoglobin (mass per erythrocyte) 29 pg 25-34 Automated erythrocyte mean corpuscular hemoglobin concentration measurement ( mass/volume) 34 g/dL 32-36 Automated erythrocyte distribution width ratio 13.3 % 10.0-14.5 Automated blood platelet count (count/volume) 346 10*3/uL 130-400 Automated blood platelet mean volume measurement 8.4 [foz_us] 7.4-10.4 Automated blood neutrophils/100 leukocytes 41 % 42-75 Automated blood lymphocytes/100 leukocytes 48 % 12-44 Blood monocytes/100 leukocytes 5 % 0-12 Automated blood eosinophils/100 leukocytes 6 % 0-10 Automated blood basophils/100 leukocytes 0 % 0-10 Blood neutrophils automated count (number/volume) 3.8 10*3 1.8-7.8 Blood lymphocytes automated count (number/volume) 4.3 10*3 1.0-4.0 Blood monocytes automated count (number/volume) 0.4 10*3 0.0-1.0 Automated eosinophil count 0.6 10*3/uL 0.0-0.3 Automated blood basophil count (count/volume) 0.0 10*3/uL 0.0-0.1 Serum or plasma choriogonadotropin ( test) detection - 03/03/17 21:40 Serum or plasma choriogonadotropin ( test) detection NEGATIVE NEGATIVE Comprehensive metabolic panel - 03/03/17 21:40 Serum or plasma sodium measurement (moles/volume) 139 mmol/L 135-145 Serum or plasma potassium measurement (moles/volume) 3.7 mmol/L 3.6-5.0 Serum or plasma chloride measurement (moles/volume) 104 mmol/L 98-107 Carbon dioxide 23 mmol/L 21-32 Serum or plasma anion gap determination (moles/volume) 12 mmol/L 5-14 Serum or plasma urea nitrogen measurement (mass/volume) 11 mg/dL 7-18 Serum or plasma creatinine measurement (mass/volume) 0.81 mg/dL 0.60-1.30 Serum or plasma urea nitrogen/creatinine mass ratio 14 NRG Serum or plasma creatinine measurement with calculation of estimated glomerular filtration rate > NRG Serum or plasma glucose measurement (mass/volume) 125 mg/dL 70-105 Serum or plasma calcium measurement (mass/volume) 9.4 mg/dL 8.5-10.1 Serum or plasma total bilirubin measurement (mass/volume) 0.2 mg/dL 0.1-1.0 Serum or plasma alkaline phosphatase measurement (enzymatic activity/volume) 81 U/L 40-136 Serum or plasma aspartate aminotransferase measurement (enzymatic activity/ volume) 12 U/L 5-34 Serum or plasma alanine aminotransferase measurement (enzymatic activity/volume ) 20 U/L 0-55 Serum or plasma protein measurement (mass/volume) 7.2 g/dL 6.4-8.2 Serum or plasma albumin measurement (mass/volume) 4.0 g/dL 3.2-4.5 Sed Rate - 10/29/17 14:35 Sed Rate 25 mm/hr 9-15 Encounters ACCT No. Visit Date/Time Discharge Status Pt. Type Provider Facility Loc./Unit Complaint [id number] 03/03/2017 20:45:00 03/03/2017 23:30:00 DIS Emergency NAS STEWART MD [facility] ER ABD PAIN [id number] 08/17/2016 10:26:00 08/17/2016 11:07:00 DIS Emergency KELTON MERIDA APRN [facility] ER FEVER/CHILLS/BACK PAIN/ SORE THROAT [id number] 05/28/2016 12:48:00 05/28/2016 14:55:00 DIS Emergency NAS STEWART MD [facility] ER RIGHT SIDE ABD PAIN [id number] 10/01/2013 20:01:00 10/01/2013 23:55:00 DIS Emergency NAS STEWART MD [facility] ER L SIDE PAIN [id number] 01/13/2013 19:36:00 01/13/2013 21:57:00 DIS Emergency KELTON MERIDA APRN [facility] ER R SIDE PAIN [id number] 05/28/2016 12:49:00 Document Registration [id number] 12/06/2010 11:45:00 Document Registration [id number] 10/29/2017 14:15:00 10/29/2017 23:59:00 DIS Outpatient Natali Lord [id number] 05/27/2016 19:39:00 05/27/2016 22:26:00 DIS Outpatient [facility] [place] [id number] 05/27/2016 19:59:30 Document Registration
--- NOTE | 2017-11-04 11:13 | ED Lower Extremity ---
General Stated Complaint: L FOOT PAIN Source: patient Exam Limitations: no limitations History of Present Illness Date Seen by Provider: Nov 04, 2017 Time Seen by Provider: 11:08 Initial Comments To ER per private vehicle with reports of left leg pain. This began a few weeks ago with left great toe pain. That toe has then spread proximally up the foot the entire leg and now in the low back. She also has some intermittent chest tightness, the pain is causing her migraine and some left jaw pain. She denies any known injury. She has a history of prior surgery to the left foot has 2 screws placed. She has seen primary care in [place] in the emergency room with xrays done at [place] without diagnosis. She states that she's been on amoxicillin prescribed by emergency room [place] but she is not entirely sure why. Onset: just prior to arrival Severity: moderate Pain/Injury Location: left 1st toe Modifying Factors: Worse With Movement Allergies and Home Medications Allergies Coded Allergies: codeine (Verified Allergy, Unknown, 05/29/10) Home Medications No Active Prescriptions or Reported Meds Patient Home Medication List Home Medication List Reviewed: Yes Review of Systems Constitutional: see HPI; No chills, No fever EENTM: see HPI Respiratory: no symptoms reported; No cough, No short of breath Cardiovascular: see HPI, chest pain Genitourinary: no symptoms reported Musculoskeletal: see HPI Skin: no symptoms reported Psychiatric/Neurological: See HPI, Headache Past Zwuhmez-Yqakgs-Nmvzre Hx Patient Social History Type Used: Cigarettes 2nd Hand Smoke Exposure: Yes Recent Hopitalizations: No Immunizations Up To Date Tetanus Booster (TDap): Unknown PED Vaccines UTD: Yes Seasonal Allergies Seasonal Allergies: No Past Medical History Surgeries: Yes (2002 FX LT FOOT, CYST REMOVED FROM RT BREAST, C/S 2008) Breast, Section, Gallbladder, Orthopedic Respiratory: No Cardiac: No Neurological: No Reproductive Disorders: No Female Reproductive Disorders: Endometriosis 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 0oz. 117.610893lg; 43.25 BMI Method:Stated General Appearance: WD/WN, no apparent distress HEENT: PERRL/EOMI, normal ENT inspection Neck: non-tender, full range of motion Respiratory: normal breath sounds, no respiratory distress, no accessory muscle use Gastrointestinal: normal bowel sounds, non tender Hips: bilateral hip non-tender, bilateral hip normal inspection, bilateral hip normal range of motion Legs: left leg pain Knees: bilateral knee non-tender, bilateral knee normal inspection, bilateral knee normal range of motion Ankles: bilateral ankle non-tender, bilateral ankle normal inspection, bilateral ankle normal range of motion Feet: bilateral foot non-tender, bilateral foot normal inspection, bilateral foot normal range of motion Neurologic/Psychiatric: alert, normal mood/affect, oriented x 3 Skin: normal color, warm/dry The foot, toe, leg are normal in appearance Progress/Results/Core Measures Results/Orders Lab Results Laboratory Tests Test 11/04/17 11:11 11/04/17 11:21 Range/Units Urine Color YELLOW Urine Clarity CLEAR Urine pH 7 5-9 Urine Specific [place] 1.005 L 1.016-1.022 Urine Protein NEGATIVE NEGATIVE Urine Glucose (UA) NEGATIVE NEGATIVE Urine Ketones NEGATIVE NEGATIVE Urine Nitrite NEGATIVE NEGATIVE Urine Bilirubin NEGATIVE NEGATIVE Urine Urobilinogen NORMAL NORMAL MG/DL Urine Leukocyte Esterase NEGATIVE NEGATIVE Urine RBC (Auto) NEGATIVE NEGATIVE Urine RBC NONE /HPF Urine WBC NONE /HPF Urine Squamous Epithelial Cells RARE /HPF Urine Crystals NONE /LPF Urine Bacteria NEGATIVE /HPF Urine Casts NONE /LPF Urine Mucus NEGATIVE /LPF Urine Culture Indicated NO White Blood Count 10.9 4.3-11.0 10^3/uL Red Blood Count 4.32 L 4.35-5.85 10^6/uL Hemoglobin 12.4 11.5-16.0 G/DL Hematocrit 36 35-52 % Mean Corpuscular Volume 84 80-99 FL Mean Corpuscular Hemoglobin 29 25-34 PG Mean Corpuscular Hemoglobin Concent 34 32-36 G/DL Red Cell Distribution Width 14.0 10.0-14.5 % Platelet Count 362 130-400 10^3/uL Mean Platelet Volume 8.8 7.4-10.4 FL Neutrophils (%) (Auto) 64 42-75 % Lymphocytes (%) (Auto) 28 12-44 % Monocytes (%) (Auto) 5 0-12 % Eosinophils (%) (Auto) 4 0-10 % Basophils (%) (Auto) 0 0-10 % Neutrophils # (Auto) 6.9 1.8-7.8 X 10^3 Lymphocytes # (Auto) 3.0 1.0-4.0 X 10^3 Monocytes # (Auto) 0.5 0.0-1.0 X 10^3 Eosinophils # (Auto) 0.4 H 0.0-0.3 10^3/uL Basophils # (Auto) 0.0 0.0-0.1 10^3/uL Sodium Level 135 135-145 MMOL/L Potassium Level 5.3 H 3.6-5.0 MMOL/L Chloride Level 104 98-107 MMOL/L Carbon Dioxide Level 22 21-32 MMOL/L Anion Gap 9 5-14 MMOL/L Blood Urea Nitrogen 10 7-18 MG/DL Creatinine 0.71 0.60-1.30 MG/DL Estimat Glomerular Filtration Rate > 60 BUN/Creatinine Ratio 14 Glucose Level 86 70-105 MG/DL Calcium Level 9.4 8.5-10.1 MG/DL Troponin I < 0.30 <0.30 NG/ML C-Reactive Protein High Sensitivity 1.47 H 0.00-0.50 MG/DL My Orders Orders - KELTON MERIDA APRN Us Venous Lower Ext Lt (11/04/17 11:06) Cbc With Automated Diff (11/04/17 11:06) Hs C Reactive Protein (11/04/17 11:06) Basic Metabolic Panel (11/04/17 11:06) Ketorolac Injection (Toradol Injection) (11/04/17 11:15) Diphenhydramine Injection (Benadryl Inje (11/04/17 11:15) Prochlorperazine Injection (Compazine In (11/04/17 11:15) Iv Heplock-Insert (Order) (11/04/17 11:06) Troponin I (11/04/17 11:13) Ua Culture If Indicated (11/04/17 11:20) Ketorolac Injection (Toradol Injection) (11/04/17 11:30) Medications Given in ED Current Medications Medications Dose Ordered Sig/[place] Route Start Time Stop Time Status Last Admin Dose Admin Diphenhydramine HCl 25 mg ONCE ONCE IV 11/04/17 11:15 11/04/17 11:16 DC 11/04/17 11:34 25 MG Ketorolac Tromethamine 30 mg ONCE ONCE IVP 11/04/17 11:30 11/04/17 11:31 DC 11/04/17 11:44 30 MG Prochlorperazine Edisylate 5 mg ONCE ONCE IV 11/04/17 11:15 11/04/17 11:16 DC 11/04/17 11:37 5 MG Vital Signs/I&O 11/04/17 10:58 Temp 98.2 Pulse 94 Resp 18 B/P (MAP) 150/85 (106) Pulse Ox 99 O2 Delivery Room Air Diagnostic Imaging Diagonstic Imaging: Ultrasound Comments NAME: IRENA PEOPLES MED REC#: [id number] PT STATUS: REG ER : 1985 PHYSICIAN: KELTON MERIDA APRN ADMIT DATE: 11/04/17/ER Draft Date of Exam:11/04/17 US VENOUS LOWER EXT LT PROCEDURE: US left lower extremity venous. TECHNIQUE: Multiple real-time grayscale images were obtained over the left lower extremity in various projections. Additional duplex Doppler and color Doppler images were also obtained. INDICATION: Left foot pain EXAMINATION: Grayscale and color Doppler evaluation of the deep veins of the left lower extremity were performed with waveform analysis. FINDINGS: Continuous venous flow is present. No intraluminal filling defect is identified. There is normal compressibility and response to augmentation. No abnormal perivascular fluid collection is identified. IMPRESSION: No ultrasound evidence of left lower extremity deep venous thrombosis. Dictated on workstation # [id number] Dict: 11/04/17 1141 Trans: 11/04/17 1144 JENNIFER [id number] Interpreted by: JOEY SZYMANSKI MD Electronically signed by: Departure Impression Primary Impression: Left leg pain Disposition: 01 HOME, SELF-CARE Condition: Stable Departure-Patient Inst. Decision time for Depature: 11:27 Referrals: ALYSE BELTRE MD (PCP/Family) Primary Care Physician Patient Instructions: General (DC) Scripts No Active Prescriptions or Reported Meds Copy Copies To 1: ALYSE BELTRE MD, PETER J APRN Nov 04, 2017 11:12
[2017-11-04] MEDS ORDERED: KETOROLAC 60 MG/2 ML VIAL IV ONE (11:15)
[2017-11-04] MEDS ORDERED: PROCHLORPERAZINE 10 MG/2ML INJ (COMPAZINE) IV ONE (11:15)
[2017-11-04] MEDS ORDERED: diphenhydrAMINE 50 MG/ML INJ (BENADRYL) IV ONE (11:15)
[2017-11-04 11:29] LABS: BASOPHILS % (AUTO) 0 % (0-10); EOSINOPHILS # (AUTO) 0.4 10^3/uL (0.0-0.3); EOSINOPHILS % (AUTO) 4 % (0-10); HEMATOCRIT 36 % (35-52); HEMOGLOBIN 12.4 G/DL (11.5-16.0); LYMPHOCYTES % (AUTO) 28 % (12-44); MEAN CORPUSCULAR HEMOGLOBIN 29 PG (25-34); MEAN CORPUSCULAR HGB CONC 34 G/DL (32-36); MEAN CORPUSCULAR VOLUME 84 FL (80-99); MEAN PLATELET VOLUME 8.8 FL (7.4-10.4); MONOCYTES # (AUTO) 0.5 X 10^3 (0.0-1.0); MONOCYTES % (AUTO) 5 % (0-12); NEUTROPHILS # (AUTO) 6.9 X 10^3 (1.8-7.8); NEUTROPHILS % (AUTO) 64 % (42-75); PLATELET COUNT 362 10^3/uL (130-400); RED BLOOD COUNT 4.32 10^6/uL (4.35-5.85); WHITE BLOOD COUNT 10.9 10^3/uL (4.3-11.0)
[2017-11-04 11:29] LABS: BILIRUBIN,URINE NEGATIVE (NEGATIVE); CLARITY,URINE CLEAR; COLOR,URINE YELLOW; GLUCOSE, URINE (UA) NEGATIVE (NEGATIVE); KETONES,URINE NEGATIVE (NEGATIVE); LEUKOCYTE ESTERASE ,URINE NEGATIVE (NEGATIVE); NITRITE,URINE NEGATIVE (NEGATIVE); PH,URINE 7 (5-9); PROTEIN,URINE NEGATIVE (NEGATIVE); UROBILINOGEN,URINE NORMAL (NORMAL)
[2017-11-04] MEDS ORDERED: KETOROLAC 30 MG/ML VIAL IVP ONE (11:30)
[2017-11-04 11:37] LABS: BACTERIA,URINE NEGATIVE /HPF; SQUAMOUS EPITHELIAL CELL,UR RARE /HPF
--- NOTE | 2017-11-04 11:44 | Diagnostic Imaging Report ---
PROCEDURE: US left lower extremity venous. TECHNIQUE: Multiple real-time grayscale images were obtained over the left lower extremity in various projections. Additional duplex Doppler and color Doppler images were also obtained. INDICATION: Left foot pain EXAMINATION: Grayscale and color Doppler evaluation of the deep veins of the left lower extremity were performed with waveform analysis. FINDINGS: Continuous venous flow is present. No intraluminal filling defect is identified. There is normal compressibility and response to augmentation. No abnormal perivascular fluid collection is identified. IMPRESSION: No ultrasound evidence of left lower extremity deep venous thrombosis. Dictated by: Dictated on workstation # [id number]
[2017-11-04 11:46] LABS: BUN/CREATININE RATIO 14; CALCIUM 9.4 MG/DL (8.5-10.1); CARBON DIOXIDE 22 MMOL/L (21-32); CHLORIDE 104 MMOL/L (98-107); CREATININE SERUM 0.71 MG/DL (0.60-1.30); GFR ESTIMATED > 60; GLUCOSE 86 MG/DL (70-105); POTASSIUM 5.3 MMOL/L (3.6-5.0); SODIUM 135 MMOL/L (135-145)
[2017-11-04 12:05] VITALS: BP 111/58
== END 2017-11-04 12:05 | disposition home or self-care (01) ==
LOC: EDUNIT# 10:16 → ER 10:17
DX: M79.605 Pain in left leg (principal); E11.9 Type 2 diabetes mellitus without complications; Z87.448 Personal history of other diseases of urinary system; Z98.890 Other specified postprocedural states; Z88.5 Allergy status to narcotic agent; Z77.22 Contact with and (suspected) exposure to environmental tobacco smoke (acute) (chronic); Z97.5 Presence of (intrauterine) contraceptive device
CPT/HCPCS: 36415; 80048; 81000; 84484; 85025; 86141; 96374; 96375

== ENCOUNTER → 2019-06-16 | Outpatient (CLI) | payer BC ==
--- NOTE | 2019-06-17 09:02 | Diagnostic Imaging Report ---
EXAMINATION: Digital mammogram bilateral screening with CAD. INDICATION: Screening. COMPARISON: This is the patient's baseline study. PERSONAL HISTORY: At this time, there are no current complaints. FINDINGS: The fibroglandular tissue in both breasts is heterogeneously dense. This does limit the sensitivity of this exam. In the 12 o'clock position of the right breast at mid depth, there is an area of architectural distortion. By history, the patient has had a prior surgical biopsy of the right breast in 2000. If previous exams are available, they would be helpful for comparison; otherwise, compression views of the area of concern should be obtained in the CC and ML projections. Ultrasound would also be recommended. There is no primary or secondary sign of malignancy involving the left breast. IMPRESSION: There is an area of architectural distortion at the 12 o'clock position of the right breast. While this may be a sequela of the patient's prior biopsy, the possibility that there is an underlying malignant process cannot be entirely excluded. Recommendations as above. ACR BI-RADS Category 0: Incomplete. (Needs additional imaging evaluation). Result letter will be mailed to the patient. Note: At least 10% of breast cancer is not imaged by mammography. Dictated by: Dictated on workstation # [id number]
== END ==
LOC: RAD 14:12
PROVIDERS: ATTEND Obstetrics & Gynecology
DX: Z12.31 Encounter for screening mammogram for malignant neoplasm of breast (principal); R92.8 Other abnormal and inconclusive findings on diagnostic imaging of breast
CPT/HCPCS: 77063; 77067

== ENCOUNTER → 2019-06-26 | Outpatient (CLI) | payer BC ==
--- NOTE | 2019-06-26 18:43 | Diagnostic Imaging Report ---
INDICATION: Right breast architectural distortion. Patient presents for additional views. COMPARISON: Correlation is made with recent screening study from 06/16/2019. EXAMINATION: Unilateral right 2D and 3D diagnostic mammography was performed with CAD. This included spot compression CC and ML views as well as 90 degree lateral view. The current study was also evaluated with a Computer Aided Detection (CAD) system. FINDINGS: Additional views show some area of architectural distortion in the upper right breast approximately T7-T8 centimeters from the nipple. Patient reportedly has had prior biopsy in the past. This may be owing to postbiopsy changes. No suspicious calcifications are seen. There are benign constipation. IMPRESSION: Architectural in distortion upper right breast, as described. This may be postbiopsy changes. Ultrasound of this area is recommended and will be performed today. ACR BI-RADS Category 0: Incomplete. (Needs additional imaging evaluation). Result letter will be mailed to the patient. Note: At least 10% of breast cancer is not imaged by mammography. Dictated by: Dictated on workstation # [id number]
--- NOTE | 2019-06-26 18:45 | Diagnostic Imaging Report ---
INDICATION: Right breast architectural distortion. COMPARISON: Correlation is made with diagnostic study earlier the same day as well as screening mammogram from 06/16/2019. EXAMINATION: Sonographic interrogation of the upper right breast was performed. FINDINGS: No discrete mass is detected. No fluid collection is identified. IMPRESSION: No sonographic abnormality is identified. The area of architectural distortion may represent scarring from patient's prior biopsy. Even so, follow-up right mammogram in six months is recommended to confirm stability. Dictated by: Dictated on workstation # [id number]
== END ==
LOC: RAD 14:04
PROVIDERS: ATTEND Obstetrics & Gynecology
DX: N64.89 Other specified disorders of breast (principal); Z98.890 Other specified postprocedural states

== ENCOUNTER → 2019-12-18 | Outpatient (CLI) | payer BC ==
--- NOTE | 2019-12-18 14:18 | Diagnostic Imaging Report ---
INDICATION: Right breast architectural distortion. Patient presents for six-month followup. Correlation is made with prior mammogram from 06/16/2019. Unilateral right 2-D and 3-D diagnostic mammography was performed with CAD. Right breast remains heterogeneously dense, limiting the sensitivity of mammography. Area of architectural distortion in the upper outer right breast is stable. No new mass or malignant-appearing microcalcifications are seen. There are benign calcifications noted. Right axilla is unremarkable. IMPRESSION: BI-RADS Category 3 Stable area of architectural distortion in the upper right breast, again likely from prior biopsy. Additional followup in 6 months is recommended to show continued stability. ACR BI-RADS Category 3: Probably benign findings. Result letter will be mailed to the patient. Note: At least 10% of breast cancer is not imaged by mammography. Dictated by: Dictated on workstation # [id number]
== END ==
LOC: RAD 13:04
PROVIDERS: ATTEND Obstetrics & Gynecology
DX: N64.89 Other specified disorders of breast (principal)
CPT/HCPCS: 77065; G0279

== ENCOUNTER → 2020-07-29 | Outpatient (CLI) | payer BC ==
--- NOTE | 2020-07-29 13:02 | Diagnostic Imaging Report ---
INDICATION: Six-month follow-up right breast architectural distortion. CORRELATION is made with prior mammograms from 06/16/2019, and 12/18/2019. 2-D and 3-D bilateral diagnostic mammography was performed with CAD. Both breasts remain heterogeneously dense, limiting the sensitivity of mammography. Area of architectural distortion in the upper right breast at mid depth appears stable. There are benign calcifications. No new mass or malignant appearing microcalcifications are seen. Axillae are unremarkable. IMPRESSION: BI-RADS Category 3 Stable bilateral mammograms and right breast architectural distortion. The architectural distortion of the right breast now shows one year of stability. Additional six-month follow-up is recommended to show continued stability. ACR BI-RADS Category 3: Probably benign findings. Result letter will be mailed to the patient. Note: At least 10% of breast cancer is not imaged by mammography. Dictated by: Dictated on workstation # [id number]
== END ==
LOC: RAD 12:31
PROVIDERS: ATTEND Obstetrics & Gynecology
DX: N63.10 Unspecified lump in the right breast, unspecified quadrant (principal)
CPT/HCPCS: 77066; G0279; 77062

== ENCOUNTER → 2021-01-25 | Outpatient (CLI) | payer BC ==
--- NOTE | 2021-01-25 13:05 | Diagnostic Imaging Report ---
Indication: Six-month follow-up of right breast architectural distortion. Correlation is made with prior mammograms dating back to 06/16/2019. Unilateral right 2-D and 3-D diagnostic mammography was performed with CAD. Right breast remains heterogeneously dense, limiting the sensitivity of mammography. The area of architectural distortion in the superior right breast appears stable. No new mass or malignant-appearing microcalcifications are seen. IMPRESSION: BI-RADS Category 3 Stable right mammogram and right breast architectural distortion. This shows 18 months of stability. One final follow-up in 6 months is recommended to show continued stability. ACR BI-RADS Category 3: Probably benign findings. Result letter will be mailed to the patient. Note: At least 10% of breast cancer is not imaged by mammography. Dictated by: Dictated on workstation # [id number]
== END ==
LOC: RAD 12:45
PROVIDERS: ATTEND Nurse Practitioner Women's Health
DX: N63.10 Unspecified lump in the right breast, unspecified quadrant (principal)
CPT/HCPCS: 77065; G0279

== ENCOUNTER → 2021-09-21 | Outpatient (CLI) | payer BC ==
--- NOTE | 2021-09-21 10:49 | Diagnostic Imaging Report ---
INDICATION: Six-month follow-up right breast architectural distortion. CORRELATION is made with prior exams from 01/25/2021, 07/29/2020 and 12/18/2019. 2-D and 3-D bilateral diagnostic mammography was performed with CAD. Both breasts are heterogeneously dense, limiting the sensitivity of mammography. Area of architectural distortion in the superior right breast is stable. No discrete mass or malignant-appearing microcalcifications are seen. There are benign calcifications. Axillae are unremarkable. IMPRESSION: BI-RADS Category 2 No mammographic features suspicious for malignancy are identified. The area of architectural distortion in the superior right breast now shows 24 months of stability. Patient may return to routine annual screening mammography. ACR BI-RADS Category 2: Benign findings. Result letter will be mailed to the patient. Note: At least 10% of breast cancer is not imaged by mammography. Dictated by: Dictated on workstation # [id number]
== END ==
LOC: RAD 09:11
PROVIDERS: ATTEND Obstetrics & Gynecology
DX: R92.8 Other abnormal and inconclusive findings on diagnostic imaging of breast (principal)
CPT/HCPCS: 77066; G0279; 77062